=== PATIENT | male | born 1955 | race African-American/Black ===

== ENCOUNTER 2019-03-05 22:12 | Emergency (ER) | payer SELFPAY ==
[~2019-03-05] VITALS: Ht 177.8 cm; Wt 68.0 kg
[2019-03-05] MEDS ORDERED: DIPHTH,PERTUSS(ACELL),TET TOX 0.5 ML DISP.SYRIN. VAX IM ONE (23:30)
[2019-03-05] MEDS ORDERED: LIDOCAINE/EPI/TETRACAINE TOPICAL GEL 3 ML. TP ONE (23:30)
[2019-03-05 23:44] VITALS: BP 129/81
[2019-03-06] MEDS ORDERED: NAPR-514 PO
[2019-03-06] MEDS ORDERED: CYCL10TA2 PO
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
== END 2019-03-06 00:04 | disposition home or self-care (01) ==
LOC: ER 22:12
DX: S01.01XA Laceration without foreign body of scalp, initial encounter (principal); S16.1XXA Strain of muscle, fascia and tendon at neck level, initial encounter; E78.00 Pure hypercholesterolemia, unspecified; Z91.018 Allergy to other foods; Y08.89XA Assault by other specified means, initial encounter; Y93.89 Activity, other specified; Y92.89 Other specified places as the place of occurrence of the external cause; Y99.8 Other external cause status
CPT/HCPCS: 12002; 90471; 90715; 99283